=== PATIENT | male | born 1940 | race Caucasian/White ===

== ENCOUNTER 2018-04-21 20:53 | Emergency (ER) | payer MEDICARE ==
[2018-04-21 21:55] VITALS: BP 99/58
--- NOTE | 2018-04-21 22:08 | UC ---
UC General HPI - HPI Summary HPI Summary: pt has some skin CA removed from the backs of both hands. sites are becoming red and swollen r>>L. no fever or joint pain. - History of Current Complaint Chief Complaint: UCUpperExtremity Stated Complaint: SKIN COMPLAINT - ARNALDO HANDS Time Seen by Provider: 04/21/18 22:02 Hx Obtained From: Patient, Family/Court Operations Clerk Onset/Duration: Gradual Onset Timing: Constant Pain Intensity: 3 Aggravating: nothing Alleviating: nothing Associated Signs & Symptoms: Negative: Fever - Allergy/Home Medications Allergies/Adverse Reactions: Allergies Allergy/AdvReac Type Severity Reaction Status Date / Time No Known Allergies Allergy Verified 04/21/18 21:48 PMH/Surg Hx/FS Hx/Imm Hx - Additional Past Medical History Additional PMH: Skin CA, valvular disease Cardiovascular History: Cardiac Disease - Surgical History Surgical History: Yes Surgery Procedure, Year, and Place: open heart surgery. pacemaker - Family History Known Family History: Positive: Cardiac Disease, Hypertension - Social History Occupation: Retired Lives: With Family Alcohol Use: None Substance Use Type: None Smoking Status (MU): Never Smoked Tobacco - Immunization History Vaccination Up to Date: Yes Review of Systems Constitutional: Negative Skin: Rash - post op sites back of hands Eyes: Negative ENT: Negative Respiratory: Negative Cardiovascular: Negative Gastrointestinal: Negative Genitourinary: Negative Motor: Negative Neurovascular: Negative Musculoskeletal: Negative Neurological: Negative Psychological: Negative Is Patient Immunocompromised?: No All Other Systems Reviewed And Are Negative: Yes Physical Exam Triage Information Reviewed: Yes Appearance: Well-Appearing Vital Signs: Initial Vital Signs Temp 98.6 F 04/21/18 21:51 Pulse 72 04/21/18 21:51 Resp 16 04/21/18 21:51 BP 99/58 04/21/18 21:51 Pulse Ox 97 04/21/18 21:51 Vital Signs Reviewed: Yes Eyes: Positive: Conjunctiva Clear ENT: Positive: Normal ENT inspection Neck: Positive: Supple, Nontender, No Lymphadenopathy Respiratory: Positive: Lungs clear, Normal breath sounds Cardiovascular: Positive: RRR, Murmur:Sys:Grade _?_/ - 2 Abdomen Description: Positive: Nontender, No Organomegaly, Soft Bowel Sounds: Positive: Present Musculoskeletal: Positive: ROM Intact Neurological: Positive: Alert Psychological: Positive: Age Appropriate Behavior Skin Exam: Normal, Other - post op wound back of L hand is dry with pink edge and not warm. post op site back of R hand has mild swelling, warmth and erythema. gross s/v/m is intacvt to both hands Course/Dx - Course Course Of Treatment: non toxic. no concern for septic joint. exam is c/w cellulitis dorsal R hand. - Differential Dx - Multi-Symptom Provider Diagnoses: cellulitis R dorsal hand. Discharge - Sign-Out/Discharge Documenting (check all that apply): Discharge/Admit/Transfer - Discharge Plan Condition: Stable Disposition: HOME Prescriptions: Cephalexin CAP* [Keflex CAP*] 500 mg PO TID #21 cap Patient Education Materials: Cellulitis (ED) Referrals: Rc Good MD [Primary Care Provider] - 2 Days Additional Instructions: fOLLOW UP fhn OR DERMATOLOGY IN 2 DAYS OR SOONER IF NEEDED. - Billing Disposition and Condition Condition: STABLE Disposition: HOME
[2018-04-21] MEDS ORDERED: Cephalexin CAP* 500 MG PO ONE (22:10)
== END 2018-04-21 22:28 | disposition home or self-care (01) ==
LOC: UCCORT 20:53
DX: L03.113 Cellulitis of right upper limb (principal); Z85.828 Personal history of other malignant neoplasm of skin; I25.10 Atherosclerotic heart disease of native coronary artery without angina pectoris; Z95.0 Presence of cardiac pacemaker; Z82.49 Family history of ischemic heart disease and other diseases of the circulatory system
CPT/HCPCS: 99212; A9270-GY; G0463